=== PATIENT | male | born 1955 | race Caucasian/White ===

== ENCOUNTER 2024-04-12 20:30 | Emergency (ER) | payer OTHER ==
[2024-04-12 20:51] VITALS: BP 156/90; PULSE 54; RESP 18; TEMP 98.4; BMI 25.1
[2024-04-12] MEDS ORDERED: AZITHROMYCIN 500 MG TABLET ONE (20:58)
[2024-04-12] MEDS: AZITHROMYCIN 500 MG TABLET PO ONE (20:59)
[2024-04-12 21:35] LABS: HEMATOCRIT 42.2 % (35.4-49); HEMOGLOBIN 13.4 G/dL (11.7-16.9); MCH 26.1 pg (25.7-33.7); MCHC 31.8 g/dl (32.0-35.9); MEAN CELL VOLUME 82.1 fl (80-96); MEAN PLT VOLUME 9.9 fl (7.5-11.1); RBC 5.14 10^6/uL (4.00-5.60); RDW 16.7 % (11.9-15.9); WHITE BLOOD COUNT 6.8 10^3/uL (4.0-10.8)
[2024-04-12 21:47] LABS: ALBUMIN 4.4 g/dl (3.4-5.0); BILIRUBIN,TOTAL 0.4 mg/dl (0.2-1); CALCIUM 9.5 mg/dl (8.5-10.1); CREATININE 1.3 mg/dl (0.6-1.3); POTASSIUM 4.4 mmol/L (3.5-5.1); TOT PROT 6.6 g/dl (6.4-8.2)
[2024-04-12 22:39] LABS: PLATELET ESTIMATE ADEQUATE
[2024-04-12] MEDS ORDERED: LACTULOSE 20 GM/30 ML UDC (FOR ORAL USE ONLY) ONE (22:40)
[2024-04-12] MEDS: LACTULOSE 20 GM/30 ML UDC (FOR ORAL USE ONLY) PO ONE (22:41)
[2024-04-12] MEDS ORDERED: AZITHROMYCIN 250 MG TABLET ONE (22:47)
[2024-04-12] MEDS: AZITHROMYCIN 250 MG TABLET PO ONE (22:53)
== END 2024-04-12 22:54 | disposition home or self-care (01) ==
LOC: FER 20:30
DX: K59.00 Constipation, unspecified (principal); R05.1 Acute cough; Z20.822 Contact with and (suspected) exposure to COVID-19
CPT/HCPCS: 36415; 71046-TC-FY; 74177-TC; 80053; 84484; 85027; 87635; 93005; 99285-25; Q9967